=== PATIENT | male | born 1970 | race Caucasian/White ===

== ENCOUNTER 2019-08-07 23:23 | Observation (INO) | payer OTHER ==
[2019-08-07] MEDS ORDERED: SODIUM CHLORIDE 0.9% 1,000 ML IV STA (23:34)
[2019-08-07 23:48] LABS: Basophils % (A) 1 %; Eosinophils # (A) 0.3 k/uL (0-0.7); Eosinophils % (A) 4 %; HCT 46.1 % (39.0-53.0); HGB 15.7 gm/dL (13.0-17.5); Lymphocytes # (A) 2.4 k/uL (1.0-4.8); Lymphocytes % (A) 41 %; MCH 34.9 pg (25.0-35.0); MCHC 34.1 g/dL (31.0-37.0); MCV 102.4 fL (80.0-100.0); Macrocytosis Slight; Mean Platelet Volume 7.2; Monocytes # (A) 0.3 k/uL (0-1.0); Monocytes % (A) 6 %; Neutrophils # (A) 2.7 k/uL (1.3-7.7); Neutrophils % (A) 45 %; Platelet Count 254 k/uL (150-450); RDW 12.6 % (11.5-15.5); WBC 5.9 k/uL (3.8-10.6)
--- NOTE | 2019-08-07 23:55 | XR ---
EXAMINATION TYPE: XR chest 2V DATE OF EXAM: 08/07/2019 COMPARISON: None HISTORY: 48-year-old male with chest pain TECHNIQUE: AP and lateral views FINDINGS: Heart upper limits of normal in size. Mild hyperinflation and mild interstitial prominence. No tutu consolidation or pleural effusion. IMPRESSION: Chronic appearing parenchymal changes. Mild hyperinflation may relate to a depth of inspiration or un derlying emphysema/COPD. No focal infiltrate.
[2019-08-07 23:58] LABS: ALT 26 U/L (4-49); AST 31 U/L (17-59); African American GFR (CKD) >90 (>60 ml/min/1.73 sqM); Albumin 3.9 g/dL (3.5-5.0); Alkaline Phosphatase 56 U/L (38-126); Anion Gap 8 mmol/L; Blood Urea Nitrogen 11 mg/dL (9-20); Calcium 8.7 mg/dL (8.4-10.2); Carbon Dioxide 19 mmol/L (22-30); Chloride 113 mmol/L (98-107); Glucose 109 mg/dL (74-99); Non-African American GFR(CKD) >90 (>60 ml/min/1.73 sqM); Sodium 140 mmol/L (137-145); Total Bilirubin 0.2 mg/dL (0.2-1.3); Total Protein 6.9 g/dL (6.3-8.2)
--- NOTE | 2019-08-08 00:42 | ED ---
Chest Pain HPI - General Chief Complaint: Chest Pain Stated Complaint: Chest pain Time Seen by Provider: 08/07/19 23:34 Source: patient, EMS, RN notes reviewed, old records reviewed Mode of arrival: EMS Limitations: no limitations - History of Present Illness Initial Comments: This is a 48-year-old male DF for evaluation patient presents today for evalu ation regards to chest pain anterior chest with heaviness history of prior AK patient has had prior catheterization although is not from this area or town. Just The area is of [place]. Patient does admit some mild alcohol use today but states the shortness of breath with chest pain is more additional concerns afternoon. No fevers he has had cough and congestion suffers from smoking he does state that he has a history of high blood pressure high cholesterol as well. MD Complaint: chest pain -: hour(s) Onset: during rest, during exertion Pain Location: substernal, left chest Pain Radiation: none Severity: mild Severity scale (1-10): 2 Quality: tightness Consistency: constant Improves With: nothing Worsens With: nothing Anginal Symptoms: dyspnea Treatments Prior to Arrival: none - Related Data Allergies Allergy/AdvReac Type Severity Reaction Status Date / Time No Known Allergies Allergy Verified 08/07/19 23:32 Review of Systems ROS Statement: Those systems with pertinent positive or pertinent negative responses have been documented in the HPI. ROS Other: All systems not noted in ROS Statement are negative. EKG Findings - EKG Comments: EKG Findings:: EKG shows sinus a rate of 89, WI 136, QRS 84, QTc 442 Past Medical History Past Medical History: Coronary Artery Disease (CAD), COPD, Hypertension History of Any Multi-Drug Resistant Organisms: None Reported Past Surgical History: Back Surgery, Cholecystectomy Past Psychological History: Depression Smoking Status: Current every day smoker Past Alcohol Use History: Occasional Past Drug Use History: None Reported General Exam Limitations: no limitations General appearance: alert, in no apparent distress Head exam: Present: atraumatic, normocephalic, normal inspection Eye exam: Present: normal appearance, PERRL, EOMI. Absent: scleral icterus, conjunctival injection, periorbital swelling ENT exam: Present: normal exam, mucous membranes moist Neck exam: Present: normal inspection. Absent: tenderness, meningismus, lymphadenopathy Respiratory exam: Present: wheezes. Absent: respiratory distress, rales, rhonchi, stridor Cardiovascular Exam: Present: regular rate, normal rhythm, normal heart sounds. Absent: systolic murmur, diastolic murmur, rubs, gallop, clicks GI/Abdominal exam: Present: soft, normal bowel sounds. Absent: distended, tenderness, guarding, rebound, rigid Extremities exam: Present: normal inspection, full ROM, normal capillary refill. Absent: tenderness, pedal edema, joint swelling, calf tenderness Back exam: Present: normal inspection Neurological exam: Present: alert, oriented X3, CN II-XII intact Psychiatric exam: Present: normal affect, normal mood Skin exam: Present: warm, dry, intact, normal color. Absent: rash Course Vital Signs 08/07/19 08/07/19 08/08/19 23:24 23:50 00:35 Temperature 97.9 F Pulse Rate 91 93 91 Respiratory 20 17 18 Rate Blood Pressure 116/81 117/80 125/79 O2 Sat by Pulse 97 97 98 Oximetry - Reevaluation(s) Reevaluation #1: 08/08/19 00:55 Medical record is reviewed Reevaluation #2: 08/08/19 00:55 Patient remains a chest pain - Consultations Consultation #1: spoke w [facility] were agreeable to admit who are agreeablel to admit Chest Pain MDM - MDM 48 male to the ER with chest pain has persistent chest pain here in ED, will admit for CP obs and cardiology evaluation Disposition Clinical Impression: Chest pain Disposition: ADMITTED IP TO THIS HOSP Condition: Undetermined Instructions (If sedation given, give patient instructions): Chest Pain (ED) Is patient prescribed a controlled substance at d/c from ED?: No Referrals: None,Stated [Primary Care Provider] - 1-2 days
[2019-08-08] MEDS ORDERED: NITROGLYCERIN SL TABS 0.4 MG TAB SUBLINGUAL PRN (00:53)
[2019-08-08] MEDS ORDERED: ASPIRIN 81 MG PO STA (00:53)
[2019-08-08] MEDS: ATORVASTATIN 80 MG TAB PO SCH (08:33)
[2019-08-08 08:42] LABS: Cholesterol 171 mg/dL (<200); HDL Cholesterol 41 mg/dL (40-60); LDL Cholesterol,Calculated 86 mg/dL (0-99); Triglycerides 218 mg/dL (<150)
[2019-08-08] MEDS ORDERED: DOBUTamine DRIP for NUC MED 500 MG in DEXTROSE/WATER 1 250ML.BAG IV ONE (10:09)
--- NOTE | 2019-08-08 10:09 | P.CRDCN ---
History of Present Illness History of present illness: HISTORY OF PRESENTING ILLNESS This is a pleasant 48-year-old male past medical history significant for hypertension, COPD and chronic nicotine dependence. He states in the past he has followed with Dr. De Dios out of [facility] and underwent cardiac catheterization about 9 years ago revealing minimal plaque but no obstructive CAD per the patient. Exact details unavailable. He no longer follows with him in the office. We have been asked to see him in consultation secondary to chest discomfort. He states last night while sitting down his computer he developed a tight sensation in the midsternal region that radiated down the left arm and mildly into the base of the left neck associated with shortness of breath. This lasted for approximately 30-45 minutes. EMS was notified and he was brought to the hospital. He has had no further symptoms of chest discomfort. DIAGNOSTICS EKG reveals his mechanism with nonspecific upsloping ST abnormalities in the inferior leads. Chest xray underlying COPD with no acute cardiopulmonary process. Laboratory reviewed, CBC unremarkable, sodium 140, potassium 4, creatinine 0.64, cardiac enzymes negative 2, lipase 415, LDL 86. He takes no daily cardiac medications. REVIEW OF SYSTEMS At the time of my exam: CONSTITUTIONAL: Denies fever or chills. CARDIOVASCULAR: Denies chest pain, shortness of breath, orthopnea, PND or palpitations. RESPIRATORY: Denies cough. GASTROINTESTINAL: Denies abdominal pain, diarrhea, constipation, nausea or vomiting. MUSCULOSKELETAL: Denies myalgias. NEUROLOGIC: Denies numbness, tingling or weakness. ENDOCRINE: Denies fatigue, weight change, polydipsia or polyurina. GENITOURINARY: Denies burning, hematuria or urgency with micturation. HEMATOLOGIC: Denies history of anemia or bleeding. PHYSICAL EXAMINATION Blood pressure 125/80 heart rate 75 afebrile and maintaining oxygen saturation on room air. CONSTITUTIONAL: No apparent distress. HEENT: Head is normocephalic. Pupils are equal, round. Sclerae anicteric. Mucous membranes of the mouth are moist. No JVD. No carotid bruit. CHEST EXAMINATION: Lungs are clear to auscultation. No chest wall tenderness is noted on palpation or with deep breathing. HEART EXAMINATION: Regular rate and rhythm. S1, S2 heard. No murmurs, gallops or rub. ABDOMEN: Soft, nontender. Positive bowel sounds. EXTREMITIES: 2+ peripheral pulses, no lower extremity edema and no calf tenderness. NEUROLOGIC EXAMINATION: Patient is awake, alert and oriented x3. ASSESSMENT Chest pain, atypical. Elevated lipase, no abdominal pain, nausea or vomiting. Patient does admit to drinking heavily on a weekly basis. Chronic nicotine dependence COPD PLAN Continue to obtain serial enzymes to rule out an acute coronary event. Obtain 2-D echocardiogram and Doppler study to assess cardiac structure and function. Check d-dimer and repeat lipase. Continue to monitor. Likely stress test on Saturday morning. Smoking and alcohol cessation recommended. Thank you kindly for this consultation. Nurse Practitioner note has been reviewed, I agree with a documented findings and plan of care. Patient was seen and examined. Past Medical History Past Medical History: Coronary Artery Disease (CAD), COPD, Hypertension History of Any Multi-Drug Resistant Organisms: None Reported Past Surgical History: Back Surgery, Cholecystectomy Additional Past Surgical History / Comment(s): left cataract removal Past Psychological History: Anxiety, Depression Smoking Status: Current every day smoker Past Alcohol Use History: Occasional Additional Past Alcohol Use History / Comment(s): Drinks 4 beers per week Past Drug Use History: None Reported Medications and Allergies Allergies Allergy/AdvReac Type Severity Reaction Status Date / Time No Known Allergies Allergy Verified 08/07/19 23:32 Physical Exam Vitals: Vital Signs Temp Pulse Pulse Resp BP BP Pulse Ox 08/08/19 03:04 98.1 F 75 17 125/80 95 08/08/19 00:35 91 18 125/79 98 08/07/19 23:50 93 17 117/80 97 08/07/19 23:24 97.9 F 91 20 116/81 97 Intake and Output 08/07/19 08/08/19 08/08/19 22:59 06:59 14:59 Other: # Voids 1 Weight 79.2 kg Results 08/07/19 23:32 08/07/19 23:32 Cardiac Enzymes 08/07/19 08/07/19 08/08/19 Range/Units 23:32 23:32 05:33 AST 31 (17-59) U/L Troponin I <0.012 <0.012 (0.000-0.034) ng/mL Coagulation 08/07/19 Range/Units 23:32 PT 10.0 (9.0-12.0) sec APTT 24.0 (22.0-30.0) sec CBC 08/07/19 Range/Units 23:32 WBC 5.9 (3.8-10.6) k/uL RBC 4.50 (4.30-5.90) m/uL Hgb 15.7 (13.0-17.5) gm/dL Hct 46.1 (39.0-53.0) % Plt Count 254 (150-450) k/uL Comprehensive Metabolic Panel 08/07/19 Range/Units 23:32 Sodium 140 (137-145) mmol/L Potassium 4.0 (3.5-5.1) mmol/L Chloride 113 H (98-107) mmol/L Carbon Dioxide 19 L (22-30) mmol/L BUN 11 (9-20) mg/dL Creatinine 0.64 L (0.66-1.25) mg/dL Glucose 109 H (74-99) mg/dL Calcium 8.7 (8.4-10.2) mg/dL AST 31 (17-59) U/L ALT 26 (4-49) U/L Alkaline Phosphatase 56 (38-126) U/L Total Protein 6.9 (6.3-8.2) g/dL Albumin 3.9 (3.5-5.0) g/dL Current Medications Generic Name Dose Route Start Last Admin Trade Name Freq PRN Reason Stop Dose Admin Aspirin 325 mg 08/09/19 09:00 Aspirin PO DAILY [facility] Atorvastatin Calcium 80 mg 08/08/19 09:00 Lipitor PO DAILY [facility] Nitroglycerin 0.4 mg 08/08/19 00:53 Nitrostat SUBLINGUAL Q5M PRN Chest Pain Intake and Output 08/07/19 08/08/19 08/08/19 22:59 06:59 14:59 Other: # Voids 1 Weight 79.2 kg 08/07/19 23:32 08/07/19 23:32
[2019-08-08] MEDS ORDERED: LORazepam 2 MG/ML INJ IV PRN ×3 (13:04)
[2019-08-08] MEDS ORDERED: THIAMINE 100 MG/ML 2 ML VIAL IM STA (13:04)
[2019-08-08] MEDS: THIAMINE 100 MG TAB PO SCH (15:34)
[2019-08-08 15:53] LABS: Appearance,Urine Clear (Clear); Bilirubin,Urine Negative (Negative); Blood,Urine Negative (Negative); Color,Urine Light Yellow; Glucose,Urine (UA) Negative (Negative); Ketones,Urine Negative (Negative); Leukocyte Esterase,Urine Negative (Negative); Nitrite,Urine Negative (Negative); Protein,Urine Negative (Negative); Specific Gravity,Urine 1.009 (1.001-1.035); Urobilinogen,Urine <2.0 mg/dL (<2.0)
--- NOTE | 2019-08-08 16:59 | HP ---
HISTORY AND PHYSICAL DATE OF SERVICE: 08/08/2019 CHIEF COMPLAINT: Chest pain. HISTORY OF PRESENT ILLNESS: This 48-year-old gentleman with a past medical history of CAD, COPD, hypertension, history of back surgery, cholecystectomy, anxiety, depression, being followed by a primary physician in the [facility] was complaining of chest pain when the patient was sitting at the computer. Patient had sudden onset of severe moderate severe chest pain which was most like pressure type which was in the anterior part of the chest which radiated to the left arm and left neck; also some shortness of breath and the patient came to [facility] and admitted for evaluation. EKG showed some minimal ST-T changes. Troponins are negative. Cardiology evaluation in progress. Of note, the patient also had a cardiac catheterization about 9 years ago and was thought to have mild plaques, but no regular followup was established. The patient also had some cough, which the patient is having cough for the last several months, according to him. There is no history of any fever, rigors, or chills. No history of headache, loss consciousness or seizures at this time. In the initial evaluation, the patient also had alcohol elevated at 94 and lipase 415. PAST MEDICAL HISTORY: CAD, COPD, hypertension, history of back surgery, cholecystectomy, history of anxiety, depression. MEDICATIONS: Medications prior to admission include home medications are none. ALLERGIES: Allergies are none. SOCIAL HISTORY: History of smoking. History of alcohol intake. REVIEW OF SYSTEMS: ENT: No diminished hearing or diminished vision. CARDIOVASCULAR SYSTEM: As mentioned earlier. RESPIRATORY SYSTEM: As mentioned earlier. GI: As mentioned earlier. : No dysuria. NERVOUS SYSTEM: No numbness, weakness. ALLERGY/IMMUNOLOGY: No asthma or hayfever. MUSCULOSKELETAL: As mentioned earlier. HEMATOLOGY/ONCOLOGY: No history of anemia. ENDOCRINE: No history of diabetes or hypothyroidism. CONSTITUTIONAL: As mentioned earlier. DERMATOLOGY: Negative. RHEUMATOLOGY: Negative. PSYCHIATRY: As mentioned earlier. PHYSICAL EXAMINATION: The patient is alert and oriented x3. Pulse is 95, blood pressure 127/80, respirations 16, temperature 98 degrees, pulse ox 97% on room air. HEENT: Conjunctivae normal. Oral mucosa moist. NECK: No jugular venous distention. No carotid bruit. No thyroid enlargement. CARDIOVASCULAR: S1, S2 muffled. No S3, no S4. RESPIRATORY: Breath sounds diminished at the bases. A few rhonchi, no crackles. ABDOMEN: Soft, nontender. No mass palpable. LEGS: No edema, no swelling. NERVOUS SYSTEM: Higher function as mentioned earlier. Moves all 4 limbs. No focal motor or sensory deficits. LYMPHATICS: No lymphadenopathy of the neck, axillae or groin. SKIN: No ulcer, rash or bleeding. JOINTS: No active deforming arthropathy. LABS: WBC 5.9, hemoglobin 15.7, MCV 102. D-dimer is 0.76. Otherwise CO2 is 19, and creatinine 0.64. Glucose 109. Troponins are negative. Triglycerides are 218 and cholesterol is 171. Lipase is 415. Alcohol is 94. ASSESSMENT: 1. Acute chest pain, possible unstable angina. Rule out myocardial infarction. 2. Elevated lipase, rule out pancreatitis. 3. History of EtOH. 4. Hypertriglyceridemia. 5. Mildly elevated D-dimer. 6. Increased MCV. 7. History of coronary artery disease. 8. History of chronic obstructive pulmonary disease. 9. Hypertension. 10.History of back surgery and degenerative joint disease. 11.History of cholecystectomy. 12.History of left cataract. 13.Anxiety, depression. 14.Continued ongoing nicotine dependence. 15.History of EtOH. RECOMMENDATIONS AND DISCUSSION: This 48-year-old gentleman who presented with multiple complex medical issues, at this time I recommend to continue current medications and continue with symptomatic treatment. Continue with unstable angina protocol. Rule out myocardial infarction. Cardiology consultation. I would also recommend a stress test at this time. Also recommend CIWA protocol, otherwise repeat labs. I would recommend amylase, lipase , also given the patient is not having any abdominal symptoms at this time, which could might indicate a subacute to chronic pancreatic issues as well. I would also recommend a CAT scan of the abdomen and pelvis also to complete the workup at this time. Otherwise, prognosis guarded. Further recommendations to follow. Discussed with the patient and understands and agrees. MMODL / IJN: [id number] / KEVIN
[2019-08-09] MEDS: THIAMINE 100 MG TAB PO SCH ×2 (06:44→17:20)
[2019-08-09 06:56] LABS: African American GFR (CKD) >90 (>60 ml/min/1.73 sqM); Amylase 76 U/L (30-110); Anion Gap 8 mmol/L; Blood Urea Nitrogen 15 mg/dL (9-20); Calcium 9.3 mg/dL (8.4-10.2); Carbon Dioxide 24 mmol/L (22-30); Chloride 106 mmol/L (98-107); Glucose 119 mg/dL (74-99); Non-African American GFR(CKD) >90 (>60 ml/min/1.73 sqM); Potassium 3.9 mmol/L (3.5-5.1); Sodium 138 mmol/L (137-145)
[2019-08-09 07:09] LABS: Basophils % (A) 0 %; Eosinophils # (A) 0.2 k/uL (0-0.7); Eosinophils % (A) 3 %; HCT 47.7 % (39.0-53.0); HGB 16.1 gm/dL (13.0-17.5); Lymphocytes # (A) 2.1 k/uL (1.0-4.8); Lymphocytes % (A) 27 %; MCH 34.4 pg (25.0-35.0); MCHC 33.8 g/dL (31.0-37.0); MCV 101.9 fL (80.0-100.0); Mean Platelet Volume 7.9; Monocytes # (A) 0.4 k/uL (0-1.0); Monocytes % (A) 5 %; Neutrophils % (A) 64 %; Platelet Count 254 k/uL (150-450); RBC 4.68 m/uL (4.30-5.90); RDW 12.4 % (11.5-15.5); WBC 7.9 k/uL (3.8-10.6)
[2019-08-09] MEDS ORDERED: ASPIRIN 325 MG TAB PO SCH (09:00)
[2019-08-09] MEDS: ATORVASTATIN 80 MG TAB PO SCH (09:02)
[2019-08-09] MEDS: ASPIRIN 81 MG PO SCH (09:02)
--- NOTE | 2019-08-09 12:05 | PN ---
PROGRESS NOTE This is a 48-year-old gentleman that is admitted to the hospital with chest pain and ruled out for myocardial infarction. This morning, he is doing well and is free of symptoms. He does not wish to go through any cardiac cath and does not want to have any invasive procedures at this time. PHYSICAL EXAMINATION: On exam today, comfortable at rest. Vital signs are stable. There is no jugular venous distention. Chest exam reveals good air entry bilaterally. Heart exam reveals first and second heart sounds, no gallop. Exam of the extremities did not reveal any edema and peripheral pulses are felt. ASSESSMENT: Precordial chest pain, myocardial infarction is ruled out. The patient is stable for discharge and follow up with us over the next 1-2 weeks. MMODL / IJN: [id number] /
--- NOTE | 2019-08-09 19:38 | PN ---
PROGRESS NOTE DATE OF SERVICE: 08/09/2019 This 48-year-old gentleman is admitted chest pain also had multiple problems including history of EtOH and increased amylase and lipase also. The repeat lipase is 18 which is showing some improvement. Cardiology following the patient closely and recommended outpatient followup and outpatient stress test. No chest pain. No palpitations. No fever. PHYSICAL EXAMINATION: Alert and oriented times three. Pulse 71, blood pressure 124/80, respiration 18, temperature 97.8, pulse ox 94% on room air. HEENT: Conjunctivae normal. NECK: No JVD. CARDIOVASCULAR; S1, S2 muffled. RESPIRATORY SYSTEM: Breath sounds diminished at the bases. A few scattered rhonchi and crackles. ABDOMEN is soft. Mild diffuse discomfort. No guarding. No mass palpable. LEGS are no edema. No swelling. LABS: WBC 7.9, 101.9. Lipase is 18. Drug screen is negative. ASSESSMENT: 1. Acute chest pain, possible unstable angina. Myocardial infarction ruled out. 2. Elevated lipase possible acute mild pancreatitis. 3. History of ETOH. 4. Hypertriglyceridemia. 5. Mildly elevated D-dimer. 6. Increased MCV. 7. History of coronary artery disease. 8. Chronic obstructive pulmonary disease. 9. Hypertension. 10.History of back surgery, degenerative joint disease. 11.History of cholecystectomy. 12.History of left cataract. 13.History of anxiety, depression. 14.Continued ongoing nicotine dependence. 15.History of EtOH. RECOMMENDATIONS AND DISCUSSION: Recommend to continue current medications. Continue with monitoring, symptomatic treatment. Cardiology recommended a stress test later. Otherwise, I would recommend lipase and amylase closely monitored. Advance the diet. Otherwise prognosis guarded because of multiple complex medical issues. Further recommendations to follow. See orders for details. MMODL / IJN: [id number] / KEVIN
[2019-08-09 20:13] VITALS: RESP 16
[2019-08-10 04:35] VITALS: TEMP 97.5
[2019-08-10 05:57] LABS: Basophils % (A) 1 %; Eosinophils # (A) 0.3 k/uL (0-0.7); Eosinophils % (A) 3 %; HCT 49.3 % (39.0-53.0); HGB 16.7 gm/dL (13.0-17.5); Lymphocytes # (A) 2.1 k/uL (1.0-4.8); Lymphocytes % (A) 26 %; MCH 34.6 pg (25.0-35.0); MCHC 33.9 g/dL (31.0-37.0); Monocytes # (A) 0.5 k/uL (0-1.0); Monocytes % (A) 6 %; Neutrophils # (A) 5.1 k/uL (1.3-7.7); Neutrophils % (A) 62 %; Platelet Count 251 k/uL (150-450); RBC 4.83 m/uL (4.30-5.90); RDW 12.4 % (11.5-15.5); WBC 8.1 k/uL (3.8-10.6)
[2019-08-10 06:16] LABS: African American GFR (CKD) >90 (>60 ml/min/1.73 sqM); Amylase 59 U/L (30-110); Anion Gap 7 mmol/L; Blood Urea Nitrogen 14 mg/dL (9-20); Calcium 9.2 mg/dL (8.4-10.2); Carbon Dioxide 25 mmol/L (22-30); Chloride 105 mmol/L (98-107); Glucose 94 mg/dL (74-99); Non-African American GFR(CKD) >90 (>60 ml/min/1.73 sqM); Potassium 4.1 mmol/L (3.5-5.1); Sodium 137 mmol/L (137-145)
--- NOTE | 2019-08-10 08:26 | P.PN ---
Subjective HISTORY OF PRESENTING ILLNESS This is a pleasant 48-year-old male past medical history significant for hypertension, COPD and chronic nicotine dependence. He states in the past he has followed with Dr. De Dios out of [facility] and underwent cardiac catheterization about 9 years ago revealing minimal plaque but no obstructive CAD per the patient. Exact details unavailable. He no longer follows with him in the office. He is seen and examined laying flat resting comfortably in bed in no acute distress. He denies any further symptoms of chest pain. He continues to feel intermittently short of breath with activity. Sadie stringer data reviewed, WBC 8.1, hemoglobin 16.7, platelets 251, sodium 137, potassium 4.1, creatinine 0.75 with GFR greater than 90, LDL 86 and HDL 41. Blood pressure 122/81 heart rate 64 afebrile maintaining oxygen saturation on room air. Currently maintained on aspirin 81 mg daily, atorvastatin 80 mg daily and sublingual nitroglycerin as needed for chest pain. He has not required any since admission. PHYSICAL EXAMINATION CONSTITUTIONAL: No apparent distress. HEENT: Head is normocephalic. Pupils are equal, round. Sclerae anicteric. Mucous membranes of the mouth are moist. No JVD. No carotid bruit. CHEST EXAMINATION: Lungs are clear to auscultation. No chest wall tenderness is noted on palpation or with deep breathing. HEART EXAMINATION: Regular rate and rhythm. S1, S2 heard. No murmurs, gallops or rub. EXTREMITIES: 2+ peripheral pulses, no lower extremity edema and no calf tenderness. ASSESSMENT Chest pain, atypical. Elevated lipase, no abdominal pain, nausea or vomiting. Patient does admit to drinking heavily on a weekly basis. Chronic nicotine dependence COPD PLAN Proceed with dobutamine stress echo to assess for stress induced ischemia. Echocardiogram has been obtained and will be reviewed, Smoking cessation recommended. If stress test and echo are normal he may be discharged and follow up in the office with Dr. Mccollum. Nurse Practitioner note has been reviewed, I agree with a documented findings and plan of care. Patient was seen and examined. Objective - Vital Signs Vital signs: Vital Signs Temp 97.5 F L 08/10/19 04:34 Pulse 64 08/10/19 04:34 Resp 16 08/10/19 04:34 BP 122/81 08/10/19 04:34 Pulse Ox 95 04/13/20 04:34 Intake & Output 08/09/19 08/10/19 08/10/19 18:59 06:59 18:59 Intake Total 480 Balance 480 Intake: Oral 480 Other: # Voids 2 1 - Labs CBC & Chem 7: 08/10/19 05:42 08/10/19 05:42 Labs: Abnormal Lab Results - Last 24 Hours (Table) 08/10/19 Range/Units 05:42 MCV 102.0 H (80.0-100.0) fL
--- NOTE | 2019-08-10 09:25 | ECHOF ---
Referral Reason: MEASUREMENTS -------- HEIGHT: 167.6 cm WEIGHT: 78.9 kg BP: 125/80 RVIDd: 4.1 cm (< 3.3) IVSd: 1.2 cm (0.6 - 1.1) LVIDd: 4.0 cm (3.9 - 5.3) LVPWd: 1.1 cm (0.6 - 1.1) IVSs: 1.5 cm LVIDs: 2.7 cm LVPWs: 1.2 cm LAESV Index (A-L): 24.33 ml/m Ao Diam: 3.2 cm (2.0 - 3.7) AV Cusp: 2.0 cm (1.5 - 2.6) MV EXCURSION: 12.495 mm (> 18.000) MV EF SLOPE: 57 mm/s (70 - 150) EPSS: 0.7 cm MV E Jono: 0.96 m/s MV DecT: 193 ms MV A Jono: 0.77 m/s MV E/A Ratio: 1.25 RAP: 5.00 mmHg RVSP: 25.72 mmHg FINDINGS -------- Sinus rhythm. This was a technically adequate study. The left ventricular size is normal. There is mild concentric left ventricular hypertrophy. Overa ll left ventricular systolic function is normal with, an EF between 55 - 60 %. The diastolic fillin g pattern is normal for the age of the patient 9.84. The right ventricle is moderately enlarged. Normal LA size by volume 22+/-6 ml/m2. The right atrium is mildly enlarged. Interatrial and interventricular septum intact. The aortic valve is trileaflet and appears structurally normal. There is no evidence of aortic regu rgitation. There is no evidence of aortic stenosis. Mild mitral regurgitation is present. Mild tricuspid regurgitation present. There is no evidence of pulmonary hypertension. The right v entricular systolic pressure, as measured by Doppler, is 25.72mmHg. There is no pulmonic regurgitation present. The aortic root size is normal. Normal inferior vena cava with normal inspiratory collapse consistent with estimated right atrial pre ssure of 5 mmHg. There is no pericardial effusion. CONCLUSIONS -------- 1. Sinus rhythm. 2. This was a technically adequate study. 3. The left ventricular size is normal. 4. There is mild concentric left ventricular hypertrophy. 5. Overall left ventricular systolic function is normal with, an EF between 55 - 60 %. 6. The diastolic filling pattern is normal for the age of the patient 9.84 7. The right ventricle is moderately enlarged. 8. Normal LA size by volume 22+/-6 ml/m2. 9. The right atrium is mildly enlarged. 10. Interatrial and interventricular septum intact. 11. The aortic valve is trileaflet and appears structurally normal. 12. There is no evidence of aortic regurgitation. 13. There is no evidence of aortic stenosis. 14. Mild mitral regurgitation is present. 15. Mild tricuspid regurgitation present. 16. There is no evidence of pulmonary hypertension. 17. The right ventricular systolic pressure, as measured by Doppler, is 25.72mmHg. 18. There is no pulmonic regurgitation present. 19. The aortic root size is normal. 20. Normal inferior vena cava with normal inspiratory collapse consistent with estimated right atrial pressure of 5 mmHg. 21. There is no pericardial effusion. BULLET [employer]SEM[employer]Y PRESS SETTER OPERATOR: Chanel Davis RDCS
[2019-08-10] MEDS: ATORVASTATIN 80 MG TAB PO SCH (09:35)
[2019-08-10] MEDS: ASPIRIN 81 MG PO SCH (09:35)
[2019-08-10] MEDS: THIAMINE 100 MG TAB PO SCH (09:35)
--- NOTE | 2019-08-10 11:52 | ECHOS ---
STRESS ECHOCARDIOGRAM INDICATIONS: Chest pain. MEDICATIONS: BASELINE HEART RATE: 68 BASELINE BLOOD PRESSURE: 123/87 MAXIMUM HEART RATE: 148 MAXIMUM BLOOD PRESSURE: 157/61 85% MPHR: 145 100% MPHR: 170 METS: MAXIMUM STAGE REACHED: TOTAL EXERCISE TIME: CLINICAL INFORMATION: Baseline rhythm is a sinus mechanism, rate 68, normal axis and intervals. Normal electrocardiogram. Baseline blood pressure 123/87 mmHg. Patient received infusion of dobutamine per protocol, peak rate 148 beats per minute which is equal to 87% maximum predicted heart rate. Peak blood pressure 157/61 mmHg. Electrocardiograph monitoring revealed no evidence of diagnostic ischemic ST deviation. Baseline echocardiogram revealed normal wall thickening and motion. At peak exercise, there was normal wall motion augmentation with no hypokinesis or dyskinesis. CONCLUSION: 1. Normal electrocardiographic response to dobutamine infusion. 2. Normal stress echocardiogram with no evidence of stress induced ischemia. MMODL / IJN: [id number] /
[2019-08-10 12:16] VITALS: BP 124/81; PULSE 74
--- NOTE | 2019-08-10 14:08 | P.DS ---
Providers Date of admission: 08/08/19 00:54 Expected date of discharge: 08/10/19 Attending physician: Dee Garza Consults: 08/08/19 00:53 Consult Physician Urgent Consulting Provider: Guanakito Mcdonald Consult Reason/Comments: cp Do you want consulting provider notified?: Yes Primary care physician: Stated None Hospital Course: Final diagnosis Acute chest pain, possible unstable angina. Myocardial infarction ruled out Elevated lipase possible acute mild pancreatitis History of EtOH Hypertriglyceridemia Mildly elevated d-dimer Increased MCV History of coronary artery disease Chronic obstructive pulmonary disease Hypertension History of back surgery, degenerative joint disease History of cholecystectomy history of left cataract history of anxiety, depression Continued ongoing nicotine dependence history of EtOH Discharge disposition Patient is being discharged in a stable condition with guarded prognosis to home. Patient will follow-up with his primary care provider in the [facility] in the outpatient setting upon discharge. Patient will also follow-up with Dr. Mccollum cardiology in the outpatient setting. Total time taken is 35 minutes. History of present illness This is a 48-year-old male who was recently admitted with chest pain with a history of EtOH and increased amylase and lipase and was being closely monitored. Patient underwent an echo showing overall left ventricular systolic function is normal with an EF between 55 and 60%. Patient underwent a dobutamine stress test today which was normal. Patient will be following up with cardiology in the outpatient setting. Patient was initiated on a baby aspirin and Lipitor along with thiamine. Patient states he has a primary care provider in the [facility] and instructed him to follow-up upon discharge. Discussed with the patient at length about refraining from any alcohol or tobacco use in the outpatient setting. Repeat amylase and lipase within normal limits today. Currently no reports of chest pain, shortness of breath, or palpitations. Patient is afebrile. No reports of nausea or vomiting and patient is tolerating diet. Patient will be going home today. On exam vital signs are stable. Temp is 97.5 F, pulse is 74, respirations are 16, blood pressure is 124/81, oxygen saturation is 96% on room air. Cardio S1, S2 are muffled. Respiratory system shows diminished breath sounds at the bases with no wheezing or rhonchi noted. Abdomen is soft and nontender. Nervous system shows no focal deficits Please refer to medication reconciliation sheet for a list of medications. Patient Condition at Discharge: Stable Plan - Discharge Summary Discharge Rx Participant: Yes New Discharge Prescriptions: New Aspirin 81 mg PO DAILY 30 Days #30 chew Atorvastatin [Lipitor] 80 mg PO DAILY 30 Days #30 tab Thiamine [Vitamin B-1] 100 mg PO BID-W/MEALS 30 Days #60 tab Discharge Medication List Aspirin 81 mg PO DAILY 30 Days #30 chew 08/10/19 [Rx] Atorvastatin [Lipitor] 80 mg PO DAILY 30 Days #30 tab 08/10/19 [Rx] Thiamine [Vitamin B-1] 100 mg PO BID-W/MEALS 30 Days #60 tab 08/10/19 [Rx] Follow up Appointment(s)/Referral(s): Mau Mccollum MD [STAFF PHYSICIAN] - 3 Weeks (please call office to set up follow-up appt.-office closed at time of discharge) Patient Instructions/Handouts: Aspirin (By mouth), Thiamine (By mouth), Atorvastatin (By mouth), Chest Pain (DC) Activity/Diet/Wound Care/Special Instructions: Patient needs to follow-up with primary care physician or establish with one in the area Follow-up with cardiology in 1-2 weeks Continue current diet - heart healthy (low fat,low salt) Avoid alcohol and tobacco use Discharge Disposition: HOME SELF-CARE
== END 2019-08-10 14:00 | disposition home or self-care (01) ==
LOC: EC 23:23 → 3SCARD 08-08 00:54 → 5NMEDONC 08-09 16:03
PROVIDERS: ADMIT Hospitalist; ATTEND Hospitalist
DX: R07.89 Other chest pain (principal); J44.9 Chronic obstructive pulmonary disease, unspecified; I25.10 Atherosclerotic heart disease of native coronary artery without angina pectoris; E78.00 Pure hypercholesterolemia, unspecified; I10 Essential (primary) hypertension; E78.1 Pure hyperglyceridemia; R74.8 Abnormal levels of other serum enzymes; R79.89 Other specified abnormal findings of blood chemistry; F32.9 Major depressive disorder, single episode, unspecified; F41.9 Anxiety disorder, unspecified; M47.9 Spondylosis, unspecified; F17.200 Nicotine dependence, unspecified, uncomplicated; I25.2 Old myocardial infarction; Z90.49 Acquired absence of other specified parts of digestive tract; Z98.42 Cataract extraction status, left eye; Z72.89 Other problems related to lifestyle
CPT/HCPCS: 96372; 93005 ×3; 96360; 99285; 36415; 93306; 93351; 85379; 83880; 80061; 80053; 80048 ×2; 82150 ×2; 83690 ×3; 83735; 84484 ×2; 85025 ×3; 85610; 85730; 81003; 80320; 71046; G0378 ×4; J1250; J3411